=== PATIENT | male | born 1980 | race Caucasian/White ===

== ENCOUNTER 2023-10-03 10:54 | Emergency (ER) | payer BC, SELFPAY ==
[2023-10-03] VITALS (15 sets, daily range): BP systolic 120–157; BP diastolic 81–105; PULSE 50–61; RESP 16–20; TEMP 35.6; O2SAT 94–99; BMI 30.1
--- NOTE | 2023-10-03 11:20 | CRLHL7_ITS ---
For Patients: As a result of the 21st Century Cures Act, medical imaging exams and procedure reports are released immediately into your electronic medical record. You may view this report before your referring provider. If you have questions, please contact your health care provider. INDICATION: Left flank pain. TECHNIQUE: CT abdomen and pelvis acquired with 103 cc Isovue 370 IV contrast. COMPARISON: None. FINDINGS: Lower chest: 4 mm solid left lower lobe nodule (3; 12). In the absence of established history of malignancy or clinical risk factors for lung cancer such as a smoking history, published management guidelines recommend no routine imaging surveillance. If the patient has risk factors for lung cancer then an optional 12 month follow-up CT is recommended. Liver: Too small to characterized circumscribed homogeneous low-density finding (2; 31), statistically likely to represent a cyst for which no further workup for ongoing imaging surveillance is recommended in the absence of established history of malignancy or significant underlying liver disease. Gallbladder and bile ducts: Unremarkable. No stones or inflammation. No biliary dilatation. Pancreas: Unremarkable. No mass or inflammation. Spleen: Unremarkable. Normal in size. No masses. Adrenal glands: Unremarkable. No nodules. Kidneys: 4 mm calcification consistent with obstructing ureteral stone at the level of the left ureterovesical junction (2; 31) with associated fat stranding in the region of the left renal hilum consistent with indirect evidence of obstructive uropathy. Normal kidneys. GI tract: Unremarkable. Normal in caliber. No sign of mass or inflammation. Normal appendix. Vasculature: Abdominal aorta is normal in caliber. Mesenteric arteries are patent. Lymph nodes: No lymphadenopathy. Peritoneum/Abdominal Wall: Small fat containing umbilical hernia. Pelvis: Unremarkable. Bones: Unremarkable for age. IMPRESSION: 1. 4 mm calcification at the left UVJ consistent with an obstructing stone with associated left perinephric fat stranding. No significant upstream left hydroureteronephrosis. Otherwise normal-appearing left kidney. 2. Incidental 4 mm solid left lower lobe nodule for which management guidelines are provided in the body of the report above. If the patient has risk factors for lung cancer such as a smoking history an optional 12 month follow-up CT is recommended. 3. Incidental too small to characterize liver lesion for which no routine workup for ongoing imaging surveillance is recommended in the absence of an established history of malignancy or significant underlying liver disease. Otherwise, short interval follow up MRI is recommended in 3-6 months. Please note that all CT scans at this facility use dose modulation, iterative reconstruction, and/or weight-based dosing when appropriate to reduce radiation dose to as low as reasonably achievable. Dictated by Loi Nguyen MD @ 10/03/2023 1:25:32 PM (Electronically Signed)
--- NOTE | 2023-10-03 11:25 | ED.GENADULT ---
HPI - General Adult General Date Seen: 10/03/23 Chief complaint: Abdominal Pain Stated complaint: L side pain Time Seen by Provider: 10/03/23 11:03 Source: patient Mode of arrival: ambulatory Limitations: no limitations History of Present Illness HPI narrative: patient is a 42-year-old male with no pertinent medical problems presenting with left flank pain. Symptoms started about an hour go any said that he had sudden sharp left flank pain. Does states he has been having urinary urgency and frequency for the past 2 weeks. States 2 weeks ago he was also having this pain but it resolved. Admits that he wakes up every few days in the middle of the night diaphoretic. Says he has never had symptoms like this prior to these past few weeks. No history of kidney stones. Does states been feeling fatigued and weak but also states he has been having upper respiratory symptoms and is getting over a cold. Has not had any fevers. Denies dysuria. Denies nausea or vomiting. States he has been eating and drinking normally. his was concerned due to some mild hemoptysis but the patient states he has been coughing aggressively and it only happened once. is not having any chest pain or shortness of breath. Related Data Previous Rx's Medication Instructions Recorded oxycodone 5 mg tablet 5 mg PO Q6H PRN pain #12 tabs 10/03/23 tamsulosin 0.4 mg capsule 0.4 mg PO DAILY #14 caps 10/03/23 Allergies Allergy/AdvReac Type Severity Reaction Status Date / Time ibuprofen AdvReac Mild mouth sores Verified 10/03/23 11:05 Review of Systems Status of ROS: Reports: 10 or more systems reviewed and unremarkable except as noted in History and below PFSH PFS Social History Smoking Status: Light tobacco smoker What tobacco products do you use: cigarettes Do you use any of these nicotine containing products: None Second hand tobacco smoke exposure: No How often do you have a drink containing alcohol: never AUDIT-C Alcohol total score: 0 Non-prescribed substance use: marijuana (any form) Exam Narrative: Exam Narrative: Const: Well-nourished, Well-developed, in mild distress Eyes: PERRL, no conjunctival injection, and symmetrical lids HENT: Atraumatic external nose and ears. Moist mucous membranes. Neck: Symmetric, trachea midline, No thyromegaly. CVS: RRR, No murmurs or gallops. Peripheral pulses 2+ and equal in all extremities RESP: Unlabored respiratory effort. Clear to auscultation bilaterally. GI: Mild suprapubic tenderness, nondistended, no rebound or guarding, left CVA tenderness MSK:Extremities w/o deformity, Normal Active ROM Skin: Warm, Dry. No rashes or lesions. Neuro: Normal Muscle tone, No focal neurological deficits. Psych: Awake, Alert, & Oriented x3. Appropriate mood and affect. Const: Vital Signs, click to edit/add: Vital Signs - 24 hr 10/03/23 11:05 10/03/23 11:36 10/03/23 11:50 Temperature 96.1 F L Pulse Rate 55 L Pulse Rate [Pulse Oximeter] 51 L 50 L Respiratory Rate 20 16 Blood Pressure Blood Pressure [Ri ght Upper Arm] 157/105 H 120/89 Pulse Oximetry 97 99 97 Oxygen Delivery Me thod Room Air Room Air Room Air 10/03/23 11:51 10/03/23 12:01 10/03/23 12:02 Temperature Pulse Rate 55 L 57 L 51 L Pulse Rate [Pulse Oximeter] Respiratory Rate Blood Pressure 125/86 122/83 Blood Pressure [Ri ght Upper Arm] Pulse Oximetry 97 96 96 Oxygen Delivery Me thod Room Air Room Air Room Air 10/03/23 12:30 10/03/23 12:31 Temperature Pulse Rate 57 L 51 L Pulse Rate [Pulse Oximeter] Respiratory Rate Blood Pressure 122/85 Blood Pressure [Ri ght Upper Arm] Pulse Oximetry 95 95 Oxygen Delivery Me thod Course Vital Signs Vital signs: Initial Vital Signs Temperature 96.1 F L 10/03/23 11:05 Temperature Source Temporal Artery Scan 10/03/23 11:05 Pulse Rate 51 L 10/03/23 11:05 Respiratory Rate 20 10/03/23 11:05 Blood Pressure 157/105 H 10/03/23 11:05 Blood Pressure Mean 122 H 10/03/23 11:05 Blood Pressure Position Sitting 10/03/23 11:05 Pulse Oximetry 97 10/03/23 11:05 Oxygen Delivery Method Room Air 10/03/23 11:05 Vital Signs Temperature 96.1 F L 10/03/23 11:05 Pulse Rate 51 L 10/03/23 11:05 Respiratory Rate 20 10/03/23 11:05 Blood Pressure 157/105 H 10/03/23 11:05 Pulse Oximetry 97 10/03/23 11:05 Oxygen Delivery Method Room Air 10/03/23 11:05 Temperature 96.1 F L 10/03/23 11:05 Pulse Rate 51 L 10/03/23 12:31 Respiratory Rate 16 10/03/23 11:36 Blood Pressure 122/85 10/03/23 12:31 Pulse Oximetry 95 10/03/23 12:31 Oxygen Delivery Method Room Air 10/03/23 12:02 Medications Administered Medications: Discontinued Medications Generic Name Dose Route Start Last Admin Trade Name Freq PRN Reason Stop Dose Admin Morphine Sulfate 4 mg 10/03/23 11:20 10/03/23 11:33 Morphine 4 Mg/Ml Inj IVP 10/03/23 11:21 4 mg ONCE ONE Administration Medical Decision Making MDM Narrative Medical decision making narrative: Patient is a 42-year-old male presenting to emergency department for left flank pain and urinary urgency. His never had a history of kidney stones. Has not had any fevers. Considering his urinary symptoms and flank pain I am thinking nephrolithiasis versus pyelonephritis. His age seems unlikely to be a AAA. With the CT scan with contrast to better evaluate this. Ordered a lipase, urinalysis, CMP, COVID/flu, CBC. Patient is given morphine for pain. Offered Toradol but his states he has an allergy to NSAIDs. Urinalysis shows blood in the urine but no signs of a urinary tract infection. COVID and flu were negative. CBC and CMP showed no concerning findings. CT abdomen pelvis shows an obstructing 4 mm stone at the UVJ. This is consistent with his symptoms. Most likely a was causing his symptoms. No signs of infected stone and he can be discharged home. To be given oxycodone for pain. He is agreeable with this plan. Lab Data Labs: Lab Results 10/03/23 10/03/23 10/03/23 Range/Units 11:21 11:30 12:20 WBC 7.85 (4.50-11.00) K/uL RBC 5.38 (4.30-5.90) m/uL Hgb 17.0 (13.5-17.5) gm/dL Hct 47.1 (37.0-53.0) % MCV 88 (80-100) fL MCH 32 (26-34) pg MCHC 36 (32-36) gm/dL RDW Coeff of Ginny 11.8 (11.5-15.5) % Plt Count 400 (140-440) K/uL Neut % (Auto) 38.4 L (42.0-72.0) % Lymph % (Auto) 40.4 (20-44) % [place] % (Auto) 7.1 (0.0-11.0) % Eos % (Auto) 13.2 H (0.0-7.0) % Baso % (Auto) 0.4 (0.0-3.0) % Neut # (Auto) 3.00 (1.7-7.0) K/uL Lymph # (Auto) 3.17 H (0.90-2.90) K/uL [place] # (Auto) 0.60 (0.00-0.90) K/UL Eos # (Auto) 1.00 H (0.00-0.50) K/uL Baso # (Auto) 0.03 (0.00-0.30) K/uL Abs Immat Gran (auto) 0.04 (0.00-0.30) K/uL Imm/Tot Granulo (auto) 0.5 % Sodium 138 (135-149) mmol/L Potassium 3.9 (3.6-5.1) mmol/L Chloride 104 (96-114) mmol/L Carbon Dioxide 25 (20-32) mmol/L Anion Gap 9 (7-15) mEq/L BUN 19 (5-24) mg/dL Creatinine 0.8 (0.5-1.5) mg/dL Estimated Creat Clear 122.93 Estimated GFR 113 ml/min Glucose 110 (60-115) mg/dL Calcium 9.4 (8.4-10.6) mg/dL Total Bilirubin 1.3 (0.1-1.5) mg/dL AST 31 (12-35) U/L ALT 53 H (4-50) U/L Alkaline Phosphatase 80 (40-150) U/L Total Protein 7.6 (6.0-8.3) g/dL Albumin 4.5 (3.3-5.0) g/dL Lipase 161 (23-300) U/L Urine Color Yellow (Yellow) Urine Appearance Clear (Clear) Urine pH 6.0 (5.0-8.5) Ur Specific [place] 1.015 (1.000-1.030) Urine Protein Negative (Negative) Urine Glucose (UA) Negative (Negative) Urine Ketones Negative (Negative) Urine Blood 2+ A (Negative) Urine Nitrite Negative (Negative) Urine Bilirubin Negative (Negative) Urine Urobilinogen 1.0 (0.2-1.0) Ur Leukocyte Esterase Negative (Negative) Urine RBC 2-5 A (0-2) Urine WBC 0-2 (0-5) Ur Squamous Epith Cells Few (None-Few) Urine Bacteria None (None) SARS-CoV-2 (PCR) Negative SARS-CoV-2 (Negative) Influenza Type A (PCR) Negative PCR FLU A (Negative) Influenza Type B (PCR) Negative PCR FLU B (Negative) Lab Acknowledgement Test Added Imaging Data CT scan abdomen and pelvis: Radiologist's impression: 1. 4 mm calcification at the left UVJ consistent with an obstructing stone with associated left perinephric fat stranding. No significant upstream left hydroureteronephrosis. Otherwise normal-appearing left kidney. 2. Incidental 4 mm solid left lower lobe nodule for which management guidelines are provided in the body of the report above. If the patient has risk factors for lung cancer such as a smoking history an optional 12 month follow-up CT is recommended. 3. Incidental too small to characterize liver lesion for which no routine workup for ongoing imaging surveillance is recommended in the absence of an established history of malignancy or significant underlying liver disease. Otherwise, short interval follow up MRI is recommended in 3-6 months. Please note that all CT scans at this facility use dose modulation, iterative reconstruction, and/or weight-based dosing when appropriate to reduce radiation dose to as low as reasonably achievable. Dictated by Loi Nguyen MD @ 10/03/2023 1:25:32 PM Discharge Plan Discharge Clinical Impression: Left nephrolithiasis Patient Disposition: Home, Self-Care Condition: Improved Instructions: Kidney Stones (ED) Additional Instructions: Take the oxycodone as needed. Use the Flomax as prescribed. Return to emergency department for new or worsening symptoms. There was a nodule fall on your lungs and due to your smoking history is recommended you talk to your primary care provider about an optional CT scan for surveillance. A cyst found on your liver is not needing surveillance at this time due to no history of liver disease or cancer. Prescriptions: New tamsulosin 0.4 mg capsule 0.4 mg PO DAILY Qty: 14 2RF oxycodone 5 mg tablet 5 mg PO Q6H PRN (Reason: pain) Qty: 12 0RF Follow Up/Referrals: Provider,Not a Local [Primary Care Provider] - Stand Alone Forms: [employer] Info Instructions
[2023-10-03] MEDS: MORPHINE 4 MG/ML INJ IVP (11:33)
[2023-10-03 11:55] LABS: Albumin* 4.5 g/dL (3.3-5.0); Chloride* 104 mmol/L (96-114); Sodium* 138 mmol/L (135-149)
[2023-10-03 11:56] LABS: Potassium* 3.9 mmol/L (3.6-5.1)
[2023-10-03 11:58] LABS: Appearance Urine Clear (Clear); Bilirubin Urine Negative (Negative); Blood Urine 2+ (Negative); Color Urine Yellow (Yellow); Glucose Urine Negative (Negative); Ketones Urine Negative (Negative); Leukocyte Esterase Urine Negative (Negative); Nitrite Urine Negative (Negative); Protein Urine Negative (Negative); Specific Gravity Urine 1.015 (1.000-1.030)
[2023-10-03 11:58] LABS: Alanine Aminotransferase* 53 U/L (4-50); Alkaline Phosphatase* 80 U/L (40-150); Anion Gap 9 mEq/L (7-15); Aspartate Amino Transferase* 31 U/L (12-35); Bilirubin Total* 1.3 mg/dL (0.1-1.5); Blood Urea Nitrogen* 19 mg/dL (5-24); Calcium* 9.4 mg/dL (8.4-10.6); Carbon Dioxide* 25 mmol/L (20-32); Creatinine* 0.8 mg/dL (0.5-1.5); Est. Creatinine Clearance* 122.93; Estimated Glomerular Filt Rate 113 ml/min; Glucose* 110 mg/dL (60-115); Lipase* 161 U/L (23-300); Total Protein* 7.6 g/dL (6.0-8.3)
[2023-10-03 12:11] LABS: Squamous Epithelial Cell Urine Few (None-Few); WBC Urine 0-2 (0-5)
[2023-10-03 12:24] LABS: PCR FLU A Negative PCR FLU A (Negative); PCR FLU B Negative PCR FLU B (Negative)
[2023-10-03 12:28] LABS: Basophils Absolute Auto 0.03 K/uL (0.00-0.30); Basophils Percent Auto 0.4 % (0.0-3.0); Eosinophils Percent Auto 13.2 % (0.0-7.0); Hematocrit 47.1 % (37.0-53.0); Immature Granulocytes Abs Auto 0.04 K/uL (0.00-0.30); Immature Granulocytes Pct Auto 0.5 %; Lymphocytes Absolute Auto 3.17 K/uL (0.90-2.90); Lymphocytes Percent Auto 40.4 % (20-44); Mean Corpuscular HGB Conc 36 gm/dL (32-36); Mean Corpuscular Hemoglobin 32 pg (26-34); Mean Corpuscular Volume 88 fL (80-100); Monocytes Percent Auto 7.1 % (0.0-11.0); Neutrophils Percent Auto 38.4 % (42.0-72.0); Platelet Count* 400 K/uL (140-440); RDW Coefficient of Variation % 11.8 % (11.5-15.5); Red Blood Count 5.38 m/uL (4.30-5.90); SARS PCR* Negative SARS-CoV-2 (Negative); White Blood Count* 7.85 K/uL (4.50-11.00)
[2023-10-03 12:34] LABS: Slide Review Reflex No
== END 2023-10-03 14:14 | disposition home or self-care (01) ==
PROVIDERS: Emergency Provider Student in an Organized Health Care Education/Training Program
DX: N20.0 Calculus of kidney (principal)
CPT/HCPCS: 36415; 74177; 80053; 81001; 83690; 85025; 87631; 96374; 99283; 99284; 99285; J2270; Q9967